=== PATIENT | female | born 1955 | race Caucasian/White ===

== ENCOUNTER 2021-05-20 14:07 | Outpatient (CLI) | payer MEDICARE, BC | END 2021-05-20 14:08 | disposition home or self-care (01) | LOC: CSHMAMMO 14:07 | PROVIDERS: ATTEND Family Medicine | DX: Z12.31 Encounter for screening mammogram for malignant neoplasm of breast (principal); Z91.89 Other specified personal risk factors, not elsewhere classified; Z80.3 Family history of malignant neoplasm of breast | CPT/HCPCS: 36415; 77063; 77067; 80053; 80061; 82306; 84443; 85025 ==

== ENCOUNTER 2023-03-09 14:35 | Outpatient (CLI) | payer MEDICARE, BC | END 2023-03-09 14:36 | disposition home or self-care (01) | LOC: CSHMAMMO 14:35 | PROVIDERS: ATTEND Family Medicine Sports Medicine | DX: Z12.31 Encounter for screening mammogram for malignant neoplasm of breast (principal); Z80.3 Family history of malignant neoplasm of breast; Z91.89 Other specified personal risk factors, not elsewhere classified | CPT/HCPCS: 77063; 77067 ==

== ENCOUNTER 2024-03-10 07:15 | Outpatient (CLI) | payer MEDICARE, BC ==
[2024-03-10] MEDS ORDERED: Iopamidol 300 61% 100 ML VIAL FS ONE (10:49)
== END 2024-03-10 07:16 | disposition home or self-care (01) ==
LOC: CSHCT 07:15
PROVIDERS: ATTEND Family Medicine Sports Medicine
DX: R19.4 Change in bowel habit (principal)
CPT/HCPCS: 36415; 74177; 82565; Q9967

== ENCOUNTER 2024-03-14 14:08 | Outpatient (CLI) | payer MEDICARE, BC | END 2024-03-14 14:09 | disposition home or self-care (01) | LOC: CSHMAMMO 14:08 | PROVIDERS: ATTEND Family Medicine Sports Medicine | DX: Z12.31 Encounter for screening mammogram for malignant neoplasm of breast (principal); M85.851 Other specified disorders of bone density and structure, right thigh; M85.852 Other specified disorders of bone density and structure, left thigh; Z78.0 Asymptomatic menopausal state; Z80.3 Family history of malignant neoplasm of breast; Z91.89 Other specified personal risk factors, not elsewhere classified | CPT/HCPCS: 77063; 77067; 77080 ==